=== PATIENT | female | born 1985 | race Caucasian/White ===

== ENCOUNTER 2016-06-08 18:41 | Emergency (ER) | payer OTHER ==
[~2016-06-08 18:41] MED LIST: NORCO 5-325 TA1 EACH PO
[2016-06-08 19:45] LABS: HEMOGLOBIN 14.6 gm/dl (12.3-15.3); RED BLOOD COUNT 4.5 M/UL (4.00-5.10); WHITE BLOOD COUNT 13.6 K/UL (4.5-11.0)
[2016-06-08 20:04] LABS: BUN/CREATININE RATIO 8 (0-10)
== END 2016-06-08 21:00 | disposition home or self-care (01) ==
LOC: ER1 18:41
PROVIDERS: Physician Assistant Medical
DX: L02.01 Cutaneous abscess of face (principal); F17.210 Nicotine dependence, cigarettes, uncomplicated
CPT/HCPCS: 36415; 80048; 85025; 87070; 87205; 99283